=== PATIENT | male | born 1950 | race Caucasian/White ===

== ENCOUNTER 2016-04-24 21:13 | Inpatient (IN) ==
[2016-04-24] MEDS ORDERED: NITROGLYCERIN SL PRN (22:05)
[2016-04-24] MEDS ORDERED: ASPIRIN PO STA (22:05)
--- NOTE | 2016-04-24 22:13 | PROVIDER DOCUMENTATION ---
HPI-Chest Pain - General Chief Complaint: Chest Pain Stated Complaint: cp Time Seen by Provider: 04/24/16 21:38 Source: patient Allergies/Adverse Reactions: Patient Allergies Allergy/AdvReac Type Severity Reaction Status Date / Time No Known Allergies Allergy Verified 04/24/16 21:21 Home Medications: Home Medication List Medication Instructions Recorded Confirmed Last Taken Type Albuterol Sulfate Inhaler 2 puff INH [id number] 04/24/16 04/24/16 Unknown History [Ventolin Hfa] Alprazolam 1 mg PO DIRECTED 04/24/16 04/24/16 Unknown History Baclofen 10 mg PO DIRECTED 04/24/16 04/24/16 Unknown History Citalopram [Celexa] 40 mg PO DAILY 04/24/16 04/24/16 Unknown History Ergocalciferol (Vitamin D2) 50,000 unit PO DIRECTED 04/24/16 04/24/16 Unknown History [Vitamin D2] Hydrocodone/APAP 10 mg/325 mg 1 each PO Q6H PRN PRN 04/24/16 04/24/16 Unknown History [Magee-10] Ipratropium/Albuterol Sulfate 3 ml IH Q6HR 04/24/16 04/24/16 Unknown History [Iprat-Albut 0.5-3(2.5) mg/3 ml] LISINOpril [Prinivil] 2.5 mg PO DAILY 04/24/16 04/24/16 Unknown History Montelukast [Singulair] 10 mg PO DAILY 04/24/16 04/24/16 Unknown History Pantoprazole [Protonix] 40 mg PO DAILY@0700 04/24/16 04/24/16 Unknown History Prednisone 20 mg PO DIRECTED 04/24/16 04/24/16 Unknown History Simvastatin 40 mg PO DAILY 04/24/16 04/24/16 Unknown History Temazepam 30 mg PO QHS PRN 04/24/16 04/24/16 Unknown History Theophylline E.r. [Iker-Dur] 400 mg PO DIRECTED 04/24/16 04/24/16 Unknown History - History of Present Illness-CP Nature of Presenting Problem: 65 YO M presents to ED with Chest Pain. Pt states onset of discomfort that began this afternoon around. States discomfort is located around heart, like someone is sticking him with a needle. States Nauseous with lightheaded, and stating being unbalanced. States numbness and tingling in fingers and also in back. Feeling of fatigue and exhaustion. States 6 years ago they found an aneurysm with 30% blockage. C/o of soreness with deep breath. Location: reports: central Chest Pain Radiation: reports: back Quality of Pain: reports: pressure, sharp Severity in ED: moderate, severe Onset/Duration: this afternoon Timing: still present Context/Activities at Onset: reports: none Associated Symptoms: reports: back pain, dizziness, fatigue. denies: abdominal pain, fever/chills Recently Seen Here or By Another Healthcare Provider: No Review of Systems - Adult - REVIEW OF SYSTEMS - ADULT Constitutional: denies: chills, fever Eyes: reports: no symptoms reported Ears, Nose, Mouth & Throat: reports: no symptoms reported Cardiovascular: reports: chest pain Respiratory: reports: no symptoms reported Gastrointestinal: reports: nausea. denies: abdominal pain, diarrhea, vomiting Genitourinary: reports: no symptoms reported Musculoskeletal: reports: no symptoms reported Integumentary: reports: no symptoms reported Neurological: reports: dizziness/vertigo, numbness, tremors Psychiatric: reports: no symptoms reported Endocrine: reports: no symptoms reported Hematologic/Lymphatic: reports: no symptoms reported Allergic/Immunologic: reports: no symptoms reported All Other Systems: Reviewed and Negative Past History - Adult - PAST MEDICAL HISTORY-ADULT Review of Records: reports: Old Records Reviewed, Nursing Assessment Review, Medications Reviewed, Social history reviewed & non-contributory. Cardiovascular: reports: HTN Respiratory: reports: asthma, COPD Psychiatric: reports: depression Endocrine/Immune: reports: Diabetes - IMMUNIZATION STATUS Childhood Immunizations: See Nurse Assessment Flu Vaccine: See Nurse Assessment - SOCIAL HISTORY Smoking: cigarettes, less than 1 pack/day Living Situation: family Physical Exam-General - PHYSICAL EXAM-ADULT Initial Vital Signs Reviewed: Yes - CONSTITUTIONAL General Appearance: appears well, alert, no apparent distress - EYES Eyes: PERRL/EOMI, pink conjunctivae, fundi clear, no AV nicking - HEAD, EARS, NOSE, MOUTH & THROAT HENMT: normocephalic/atraumatic, moist mucous membranes, normal ENT inspection, TMs normal, pharynx normal - NECK Neck: non-tender, full range of motion, supple, normal inspection - RESPIRATORY Respiratory: chest non-tender, lungs clear, normal breath sounds - CARDIOVASCULAR Cardiovascular: normal peripheral pulses, systolic murmur (2/6 MITRAIL) - GASTROINTESTINAL (ABDOMEN) Abdominal Exam: normal bowel sounds, non tender, soft - MUSCULOSKELETAL Back Exam: normal inspection, no CVA tenderness, no vertebral tenderness Extremity: normal range of motion, non-tender - SKIN Integumentary: normal color, normal turgor, warm/dry - 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 - PSYCHIATRIC Psych/Mental Status: normal mood/affect, normal thought content, normal thought process, oriented x 3 Progress - PLAN OF CARE/RESULTS Progress/Plan/Lab Results: Laboratory Tests 04/24/16 04/24/16 04/24/16 22:18 22:18 22:18 WBC 23.54 H RBC 5.07 Hgb 15.5 Hct 44.8 MCV 88.4 MCH 30.6 MCHC 34.6 RDW Std Deviation 14.8 H Plt Count 224 MPV 10.6 H Immature Gran % (Auto) 1.0 H Neut % (Auto) 84.8 H Lymph % (Auto) 7.2 L Brooke % (Auto) 7.0 Eos % (Auto) 0.0 Baso % (Auto) 0.0 Immature Gran # (Auto) 0.23 H Neut # (Auto) 19.95 H Lymph # (Auto) 1.69 Brooke # (Auto) 1.65 H Eos # (Auto) 0.01 Baso # (Auto) 0.01 PT INR PTT (Actin FS) D-Dimer 0.50 Sodium 133 L Potassium 4.4 Chloride 95 L Carbon Dioxide 19 L Anion Gap 19 BUN 36 H Creatinine 1.8 H Estimated GFR/1.73 m2 38 BUN/Creatinine Ratio 20 Glucose 125 H Calculated Osmolality 276 Calcium 9.5 Magnesium 1.9 Total Bilirubin 0.53 AST 15 ALT 14 Alkaline Phosphatase 47 Creatine Kinase 50 Troponin T Wvg-W-Swtztyhgwcn Pept Total Protein 6.6 Albumin 4.3 Globulin 2.3 Albumin/Globulin Ratio 1.9 04/24/16 04/24/16 04/24/16 22:18 22:18 22:18 WBC RBC Hgb Hct MCV MCH MCHC RDW Std Deviation Plt Count MPV Immature Gran % (Auto) Neut % (Auto) Lymph % (Auto) Brooke % (Auto) Eos % (Auto) Baso % (Auto) Immature Gran # (Auto) Neut # (Auto) Lymph # (Auto) Brooke # (Auto) Eos # (Auto) Baso # (Auto) PT 10.7 INR 1.01 PTT (Actin FS) 20.7 L D-Dimer Sodium Potassium Chloride Carbon Dioxide Anion Gap BUN Creatinine Estimated GFR/1.73 m2 BUN/Creatinine Ratio Glucose Calculated Osmolality Calcium Magnesium Total Bilirubin AST ALT Alkaline Phosphatase Creatine Kinase Troponin T < 0.010 Fii-A-Ppnttddifyd Pept 202 H Total Protein Albumin Globulin Albumin/Globulin Ratio Orders Category Date Time Status Cardiac Monitoring DIRECTED Care 04/24/16 22:06 Active Saline Loc NOW Care 04/24/16 22:06 Active CHEST-PORTABLE [RAD] Stat Exams 04/24/16 22:09 Taken CBC WITH ELECTRONIC DIFF [HEME] Stat Lab 04/24/16 22:18 Completed CK PROFILE [SP CHEM] Stat Lab 04/24/16 22:18 Completed COMPREHENSIVE METABOLIC PANEL [CHEM] Stat Lab 04/24/16 22:18 Completed D-DIMER [CHEM] Stat Lab 04/24/16 22:18 Completed MAGNESIUM [CHEM] Stat Lab 04/24/16 22:18 Completed PRO B-NATRIURETIC PEPTIDE Stat Lab 04/24/16 22:18 Completed PROTIME WITH INR [COAG] Stat Lab 04/24/16 22:18 Completed PTT [COAG] Stat Lab 04/24/16 22:18 Completed THEOPHYLLINE [HH] Stat Lab 04/24/16 22:18 Received TROPONIN T Stat Lab 04/24/16 22:18 Completed Aspirin Med 04/24/16 22:05 Discontinued 325 mg PO STAT STA Morphine Med 04/24/16 23:43 Discontinued 2 mg .ROUTE .STK-MED ONE Morphine Med 04/24/16 23:39 Discontinued 2 mg IV NOW ONE Nitroglycerin Sl [Nitroglycerin] Med 04/24/16 22:05 Active 0.4 mg SL Q5M PRN PRN Ondansetron [Zofran] Med 04/24/16 23:39 Discontinued 4 mg IV NOW ONE EKG [EKG] Stat Ther 04/24/16 21:30 Ordered EKG [EKG] Stat Ther 04/24/16 22:06 Ordered Transfer/Admit Order [TRANSFER] Routine Transfer 04/24/16 23:51 Ordered Vital Signs - 24 hr 04/24/16 04/24/16 04/25/16 21:17 23:10 00:29 Temperature 97.9 F Pulse Rate 88 75 78 Respiratory 17 18 14 Rate Blood Pressure 107/70 134/80 106/79 O2 Sat by Pulse 97 97 97 Oximetry 04/25/16 00:58 Temperature Pulse Rate 61 Respiratory 14 Rate Blood Pressure 115/97 O2 Sat by Pulse 96 Oximetry - EKG 1 Time of EKG reading by physician:: 21:39 EKG Read and Signed by:: Rick Stark Rate: 81 Rhythm: NSR Comments: Normal ECG - CONSULTS/PCP/HOSPITALIST Notification #1 *Consult/PCP/Hospitalist*: Time Discussed: 10:49 Reason/Comments: Admit Consult Disposition: Admit (Admit Accepted) Departure - Departure Time of Disposition Order: 22:58 DIAGNOSIS: Theophylline toxicity, Acute coronary syndrome Disposition: ADMITTED INPATIENT 09 Certified Medical Emergency: Emergent Condition: Stable Additional Instructions: ED Follow Up Instructions: You have been treated by a care provider in the Emergency Department. These instructions are being provided to you so you can have an understanding of how to care for yourself upon discharge. Upon discharge from the Emergency Department, you are responsible for making arrangements for follow-up care by a physician of your choice. Take all prescribed medications as directed. Return to the Emergency Department immediately for any new or worsening symptoms. You may call the Physician Referral phone number at [phone] to obtain a list of Physicians who are taking new patients. Referrals: Phillip Trivedi MD [Primary Care Provider] - Attestation - Scribe Verification/Attestation Scribe:: Juanis Wallace Acting as Scribe for:: Rick Stark Scribe documention review:: This chart was documented by a scribe and accurately reflects the service the provider performed and the decisions made by the provider.
[2016-04-24 22:40] LABS: ALBUMIN 4.3 g/dL (3.5-5.0); CALCIUM 9.5 mg/dL (8.8-10.2); MAGNESIUM 1.9 mg/dL (1.5-2.7); POTASSIUM 4.4 mmol/L (3.5-5.1); TOTAL BILIRUBIN 0.53 mg/dL (0.20-1.00); TOTAL PROTEIN 6.6 g/dL (6.3-8.3)
[2016-04-24 22:43] LABS: INR 1.01; PROTIME 10.7 Seconds (9.2-11.7); PTT 20.7 Seconds (22.0-36.0)
[2016-04-24] MEDS ORDERED: MORPHINE IV ONE (23:39)
[2016-04-24] MEDS ORDERED: ZOFRAN IV ONE (23:39)
[2016-04-24] MEDS ORDERED: MORPHINE ONE (23:43)
[2016-04-25 00:05] LABS: EOS# 0.01 X1000 (0.0-0.7); HEMATOCRIT 44.8 % (42.0-52.0); HEMOGLOBIN 15.5 g/dL (14.0-18.0); IMM GRAN# 0.23 X1000 (0.0-0.04); LYMPH# 1.69 X1000 (1.2-3.4); LYMPH% 7.2 % (20.5-51.1); MANUAL DIFF NEEDED? NO; MCH 30.6 PG (27-31); MCHC 34.6 g/dL (33-37); MCV 88.4 FL (81-99); MONO# 1.65 X1000 (0.11-0.59); MPV 10.6 FL (7.4-10.4); NEUT% 84.8 % (42.2-75.2); PLT 224 X1000 (130-400); RBC 5.07 XMIL (4.7-6.1)
[2016-04-25 01:54] LABS: URINE CULTURE NEEDED? NO; URINE SOURCE CLEAN CATCH
[2016-04-25 01:56] LABS: BILIRUBIN URINE NEGATIVE (NEGATIVE); BLOOD URINE NEGATIVE (NEGATIVE); COLOR YELLOW; GLUCOSE URINE NEGATIVE (NEGATIVE); LEUKOCYTES URINE NEGATIVE (NEGATIVE); NITRITE URINE NEGATIVE (NEGATIVE); PH URINE 5.5; PROTEIN URINE 50 mg/dL (NEGATIVE); TURBIDITY URINE HAZY (CLEAR); UROBILINOGEN URINE 2 mg/dL (NORMAL)
[2016-04-25 01:57] LABS: URINE MICRO REVIEW NEEDED? YES
[2016-04-25 02:03] LABS: UR EPITHELIAL CELLS <10 /HPF (<10); URINE BACTERIA NEGATIVE /HPF; URINE RBC <10 /HPF (<10); URINE WBC <10 /HPF (<10)
[2016-04-25 02:05] LABS: URINE CASTS NONE SEEN; URINE CRYSTALS NONE SEEN; URINE SMALL ROUND CELLS NONE SEEN
[2016-04-25] MEDS ORDERED: ZOFRAN IV PRN (02:41)
[2016-04-25] MEDS ORDERED: TYLENOL PO PRN (02:41)
[2016-04-25] MEDS ORDERED: MORPHINE IV PRN (02:41)
[2016-04-25] MEDS ORDERED: XANAX PO PRN (03:02)
[2016-04-25] MEDS ORDERED: VENTOLIN HFA INH SCH (03:02)
[2016-04-25] MEDS ORDERED: RESTORIL PO PRN (03:02)
[2016-04-25] MEDS ORDERED: LEVAQUIN 750 MG in NS 150 ML IV SCH (04:00)
[2016-04-25] MEDS: NS 1,000 ML IV SCH (04:24)
[2016-04-25] MEDS: NORCO-10 PO PRN ×3 (04:24→22:01)
[2016-04-25] MEDS ORDERED: LEVAQUIN 750 MG/D5W 150 ML IV SCH (04:30)
--- NOTE | 2016-04-25 05:45 | EKG Report ---
Test Performed on : 04/24/2016 9:39:32 PM Test Reason : chest pain Blood Pressure : / mmHG Vent. Rate : 081 BPM Atrial Rate : 081 BPM P-R Int : 164 ms QRS Dur : 082 ms QT Int : 358 ms P-R-T Axes : 050 010 033 degrees QTc Int : 415 ms Normal sinus rhythm. Normal ECG No previous ECGs available Unconfirmed Result
[2016-04-25] MEDS ORDERED: DUONEB (A & A) INH PRN (06:05)
[2016-04-25 06:27] LABS: MANUAL DIFF NEEDED? NO
[2016-04-25] MEDS ORDERED: PRILOSEC PO SCH (07:00)
[2016-04-25 07:01] LABS: BASO% 0.2 % (0.0-0.8); EOS# 0.11 X1000 (0.0-0.7); EOS% 0.8 % (0.0-10.0); HEMATOCRIT 43.4 % (42.0-52.0); HEMOGLOBIN 14.5 g/dL (14.0-18.0); IMM GRAN# 0.18 X1000 (0.0-0.04); IMM GRAN% 1.3 % (0.0-0.5); LYMPH# 3.09 X1000 (1.2-3.4); MCH 29.8 PG (27-31); MCHC 33.4 g/dL (33-37); MCV 89.3 FL (81-99); MONO# 1.18 X1000 (0.11-0.59); MONO% 8.4 % (1.7-9.3); MPV 10.9 FL (7.4-10.4); NEUT% 67.3 % (42.2-75.2); PLT 196 X1000 (130-400); RBC 4.86 XMIL (4.7-6.1)
[2016-04-25 07:08] LABS: ALBUMIN 4.3 g/dL (3.5-5.0); CALCIUM 9.3 mg/dL (8.8-10.2); POTASSIUM 3.9 mmol/L (3.5-5.1)
--- NOTE | 2016-04-25 07:35 | EKG Report ---
Test Performed on : 04/25/2016 06:36:39 AM Test Reason : Chest Pain Blood Pressure : / mmHG Vent. Rate : 060 BPM Atrial Rate : 060 BPM P-R Int : 168 ms QRS Dur : 084 ms QT Int : 410 ms P-R-T Axes : 059 028 032 degrees QTc Int : 410 ms Normal sinus rhythm. Normal ECG When compared with ECG of 24-APR-2016 21:39, (Unconfirmed) No significant change was found Confirmed by Malvin La MD ([id number]) on 04/25/2016 9:02:15 PM
--- NOTE | 2016-04-25 07:54 | Diag Imaging Result Document ---
PROCEDURE NAME: THORAX/ABDOMEN/PELVIS W/O CONT - 04/25/2016 CT OF THE CHEST WITHOUT CONTRAST: FINDINGS: There is COPD. There is herniation of the lower portion of the right upper lobe through the 5th intercostal space laterally. This may be due to previous trauma or surgery. There is fibrosis or atelectasis in the adjacent lung parenchyma. There are also apparent fibrotic changes in the lower portion of the lingula and the anterior inferior right lower lobe. No previous studies are available for comparison. There is no evidence of significant adenopathy or abnormal fluid collections. There is some coronary calcification. The regional skeleton is, otherwise, intact. IMPRESSION: No evidence of acute disease. CT UROGRAM WITHOUT CONTRAST: There are multiple appearances of left renal cysts. There is no evidence of hydronephrosis or stones. There are no apparent gallstones. There is atherosclerotic calcification in the aorta with infrarenal abdominal aortic aneurysm with a maximum AP dimension of 3.8 cm. There is no evidence of bowel obstruction. No significant adenopathy is present. There is no evidence of appendicitis. There is no evidence of free fluid. The urinary bladder is not distended. IMPRESSION: No evidence of acute intraabdominal disease. Abdominal aortic aneurysm.
--- NOTE | 2016-04-25 08:00 | HISTORY AND PHYSICAL ---
PRIMARY CARE PROVIDER: Phillip Trivedi MD CHIEF COMPLAINT: Chest pain. HISTORY OF PRESENT ILLNESS: Mr. Siegel is a 65-year-old male who presented to [facility] with complaints of chest pain that has been consistent for approximately 1.5 weeks. The patient reports that previously the pain in his left chest was not radiating. He described it as sharp and stabbing in nature. He reports that with even the lightest of exertion that the chest pain would worsen. The patient reports that earlier in the day on 04/24/2016 that his chest pain became worse and more intense and switched to feeling like pressure in nature. He described associated symptoms of shortness of breath, diaphoresis, nausea, and fatigue. The patient also reported that today with the worsening of his chest pain that he felt lightheaded and had some blurred vision as well. The patient reports that he has just recently moved here from [place], approximately 8 months ago. He reports that he currently still smokes one pack of cigarettes per day though he did express that he wanted to quit smoking. He denies any alcohol or illicit drug use. He does have a history of COPD, diabetes that is diet controlled, hypertension, hyperlipidemia, abdominal aortic aneurysm, and pulmonary embolism several years ago for which he did initially receive Coumadin therapy for. The patient did report that previously he did have one episode in the past of having acute renal failure though has not had any problems with kidney disease or complications since. Upon evaluation in the E.R. the patient was evaluated and he was found to have acute kidney injury with an elevated creatinine of 1.8 and GFR of 38. Troponin and CK were negative. EKG at this time did not show any acute changes. It was normal sinus rhythm at a rate of 81. QTc was 415. Though the patient did have a elevated white blood cell count of 23.54. The patient denies any recent changes in his medications. He does take prednisone though has taken this for a few years. He denies any fever though did report some intermittent chills for the past 6 months as well as some generalized lower abdominal pain with diarrhea as well for the past 6 months. He denied any cough, dysuria, or urinary frequency. At this time we will admit the patient for further evaluation of his chest pain as well as his leukocytosis and acute kidney injury. REVIEW OF SYSTEMS: A 14 point review of systems was conducted with the patient and all were negative except for pertinent positives mentioned above in the HPI. PAST MEDICAL HISTORY: 1. COPD. 2. Diabetes mellitus type 2 which is diet controlled. 3. Gastroesophageal reflux disease. 4. Hypertension. 5. Seizures. 6. Vertigo. 7. Abdominal aortic aneurysm. 8. History of acute renal failure. 9. Depression. 10.Anxiety. 11.Cataracts. 12.Pulmonary embolism. 13.Chronic pain secondary to neck and back problems. PAST SURGICAL HISTORY: 1. Bilateral cataract removal. 2. Neck surgery. 3. Low back surgery. 4. Right hand surgery. 5. Right knee surgery. 6. Surgery on his right lung for initially a biopsy and then removal of a fungal infection per the patient. SOCIAL HISTORY: The patient is currently a one pack per day smoker and has been since the age of 23. He denies any alcohol or illicit drug use. FAMILY HISTORY: Positive for his mother having at a young age in her 30s from a lung disease though the patient could not state what kind. His father had a past medical history significant for cardiac disease. He had his first heart attack at the age of 28 and had 3 subsequent heart attacks as well. He had pacemaker placement and from a thoracic aneurysm rupture. He reports that his siblings are all healthy. ALLERGIES: The patient reports no known allergies. HOME MEDICATIONS: 1. Ventolin HFA inhaler, two puffs inhaled 4 times a day. 2. Xanax 1 mg p.o. every 8 hours p.r.n. for anxiety/seizures. 3. Baclofen 10 mg p.o. as directed. 4. Celexa 40 mg p.o. daily. 5. Vitamin D2 50,000 units p.o. as directed once weekly. 6. [place] 10, one p.o. every 6 hours p.r.n. for pain. 7. Albuterol Atrovent nebulizer treatments, inhaled every 6 hours p.r.n. for wheezing. 8. Lisinopril 2.5 mg p.o. daily. 9. Singulair 10 mg p.o. daily. 10.Protonix 40 mg p.o. daily. 11.Prednisone 20 mg p.o. as directed once daily. 12.Simvastatin 40 mg p.o. daily. 13.Temazepam 30 mg p.o. at bedtime p.r.n. for insomnia. 14.Theophylline extended release 400 mg b.i.d. p.o.. DIAGNOSTIC DATA: White blood cell count is 23.54, hemoglobin 15.5, hematocrit 44.8, and platelet count 224. PT is 10.79, INR 1.01, and PTT 20.7. D-dimer is 0.5. Sodium is 133, potassium 4.4, chloride 95, bicarb 19, BUN 36, creatinine 1.8, GFR 38, glucose 125, hemoglobin A1c 6, calcium 9.5, and magnesium 1.9. Liver function tests were within normal limits. CK is 50. Troponin is less than 0.01. ProBNP is 2.02. Plasma lactate was 1.1. Urinalysis obtained via clean catch was positive for protein and trace ketones and was negative for blood, nitrites, leukocytes, white blood cells, and bacteria. EKG showed normal sinus rhythm at a rate of 81. QTc was 415. CT thorax, abdomen, and pelvis without contrast showed emphysema. There were ill-defined opacities in the right mid lung which likely represent scarring. Consider comparison to previous for confirmation. No diverticulitis or bowel obstruction. Normal appendix. A 3.8 cm abdominal aortic aneurysm. PHYSICAL EXAMINATION: VITAL SIGNS: Temperature is 97.9, heart rate 78, respirations 14, and blood pressure 106/79. Oxygen saturation is 97% on room air. GENERAL: Mr. Siegel is a pleasant 65-year-old male who is resting in the E.R. stretcher in no acute distress. He was awake, alert, and able to answer all questions appropriately. HEENT: The head is atraumatic, normocephalic. Pupils are equal, round, and reactive to light. They were 3 mm bilaterally and brisk. Sub-conjunctivae were pink. Oral mucosa is moist. Oropharynx is clear. NECK: Supple. Trachea is midline. No JVD noted. No carotid bruits noted upon auscultation bilaterally. CARDIOVASCULAR: The patient has normal S1, S2. No murmurs, gallops, or rubs appreciated with a regular rate and rhythm. PULMONARY: The patient has symmetrical chest expansion bilaterally. Lungs sounds in bilateral full lung marmolejo did have inspiratory and expiratory wheezing noted. ABDOMEN: Soft, nontender, and nondistended. Bowel sounds were present in all four quadrants and were normoactive. EXTREMITIES: No cyanosis or edema noted. Pulse, motor, and sensory was intact in all extremities. Pedal pulses were 3+ bilaterally. Radial pulses were 3+ bilaterally as well. INTEGUMENTARY: The patient's skin is pink, warm, dry, and intact. No lesions or sores noted. NEUROLOGICAL: The patient is alert and oriented times 3. Cranial nerves 2 through 12 are grossly intact. IMPRESSION AND PLAN: 1. Chest pain, rule out acute coronary syndrome for this. We will do a series of cardiac enzymes. We have placed a consult with Dr. Bettencourt with Cardiology. We will repeat an EKG in the morning. We have also ordered an echocardiogram for in the morning. The patient did report that his last cardiac catheterization was several years ago. He did report that he had received these tests in [place] where he previously lived. At this time the patient's chest pain has improved greatly with the use of morphine in the E.R. and nitroglycerin prior his arrival to the E.R.. We will do cardiac telemetry and vital signs every 4 hours and closely monitor his cardiac status. 2. Leukocytosis. At this time this is of uncertain etiology. The patient does take 20 mg of prednisone daily though has done this for at least 3-4 years per his report. The patient denies any changes in medicines or new medicines. Other than reports of diarrhea and some lower abdominal pain no other signs of infection were noted. CT thorax, abdomen, and pelvis was negative for any signs of infection as well though there was some ill-defined opacities in the right lung which were likely reported as scarring but we will go ahead and cover him with Levaquin IV per renal dosing until we can further evaluate this and await blood cultures. We also will place orders for stool cultures and we will await those results as well. 3. Diarrhea. We will continue with treatment as mentioned for #2 and we will order stool studies and we will continue to follow. 4. Acute kidney injury. This could be multifactorial secondary to the patient's diarrhea as well as a combination of medications. We will avoid nephrotoxic medications and we will renally dose the patient's current home medications and we will continue to follow. We will also provide gentle fluid resuscitation with normal saline at 100 mL/hr and we will repeat a renal profile in the morning. 5. Hypertension. At this time we will hold the patient's lisinopril given his current acute kidney injury. His blood pressure at this time is within normal limits with the last reading of 106/79. We will closely monitor his blood pressure and continue to follow. 6. Hyperlipidemia. We have ordered for the patient to receive a lipid profile tomorrow morning so that he can be fasting for this lab draw. At this time we will hold his simvastatin due to his acute kidney injury and we will continue to follow. 7. Diabetes mellitus type 2. At this time the patient currently reports that this diet controlled. His hemoglobin A1c was 6. We will do fingerstick blood sugars morning and night and place him on a diabetic diet and continue to follow. 8. Chronic obstructive pulmonary disease. For this, the patient does take theophylline 400 mg twice a day. We have ordered a theophylline level and until we get this back we will hold this at this time. We have also ordered for the patient to have DuoNeb, Albuterol Atrovent treatments every 4-6 hours p.r.n. as needed. 9. Tobacco abuse dependency. I did discuss with the patient the need for him to quit smoking given his cardiac history, respiratory history, and history of pulmonary embolism. The patient does express the want to quit smoking. We will continue to employee counselor the patient on this and encourage him to quit smoking and we will provide him with further education and materials on this upon discharge. The patient was placed on the medical floor on telemetry. He will have vital signs every 4 hours. DVT prophylaxis will be provided with heparin 5,000 units subcutaneously every 12 hours. GI prophylaxis will be provided with Protonix 40 mg p.o. daily. Further orders and recommendations pending hospital course, diagnostic studies, and physician evaluation. Dictated by KIRILL Garay for Flip Medina MD
--- NOTE | 2016-04-25 08:16 | Diag Imaging Result Document ---
PROCEDURE NAME: CHEST-PORTABLE - 04/24/2016 SINGLE FRONTAL RADIOGRAPH OF THE CHEST: COMPARISON: 02/17/2016. FINDINGS: There are postsurgical changes at the right lung base and mid lung zone that are similar to the previous study. No definite new consolidation is identified. No significant pleural fluid collection is identified. Cardiac silhouette and central vasculature are grossly unremarkable. IMPRESSION: Postsurgical changes at the right mid and lower lung zone that are very similar to the previous study. No definite acute pathology, otherwise.
[2016-04-25] MEDS: DUONEB (A & A) INH SCH ×3 (10:00→23:04)
[2016-04-25] MEDS: HEPARIN SUBQ SCH ×2 (11:31→21:55)
[2016-04-25] MEDS: LIORESAL PO SCH ×2 (11:32→21:55)
[2016-04-25] MEDS: CELEXA PO SCH (11:32)
[2016-04-25] MEDS: PROTONIX PO SCH (11:32)
--- NOTE | 2016-04-25 12:05 | CONSULTATION ---
DATE OF CONSULTATION: 04/25/2016 HISTORY OF PRESENT ILLNESS: The patient is a 65-year-old gentleman, who is admitted with chest pain and cough with expectoration. He has history of COPD, has nebulizers and oxygen as at home. He is a smoker. He comes with complaints of having cough with expectoration, which is mucoid to mucopurulent for the last 3-4 days. However, he has been noticing increasing shortness of breath and some chest discomfort left- sided for 1-2 weeks. These symptoms were more pleuritic in nature. He underwent a CT scan of his chest. There is no evidence of acute disease in the abdomen as well. No evidence of intra- abdominal disease or abdominal aorta aneurysm was ruled out. He was noted to have elevated white count. Started on antibiotics. From a cardiac standpoint, he has relocated from [place]. He had an angiogram done about 4 or 5 years ago and was noted to have some minimal coronary artery disease without any significant disease per patient. I do not have official records. There are no palpitations. There is no dizziness or syncope. FOURTEEN POINT REVIEW OF SYSTEMS: GI system: There is no history of nausea, vomiting, or diarrhea. There is no history of hematemesis or melena. Central nervous system: No focal weakness to suggest a CVA or TIA. system: There is no dysuria or hematuria. PAST MEDICAL HISTORY: COPD, diabetes, gastroesophageal reflux disease, hypertension, vertigo, depression, cataract surgery, history of pulmonary embolism in the past. PAST SURGICAL HISTORY: Neck surgery, bilateral cataract surgery, low back surgery, right hand surgery, right knee surgery. HOME MEDICATIONS: Ventolin, Xanax, baclofen 10 mg, Celexa 40, lisinopril 2.5, Singulair 10, Protonix 40, prednisone 20, theophylline extended release. LABS: WBC 23.54, hemoglobin 15.5, hematocrit 44, platelet count of 224. Sodium 133, potassium 4.4, BUN 36, creatinine 1.8. X-RAYS: CT scan of thorax, abdomen and pelvis without contrast revealed emphysema. There were ill-defined opacities in the right mid lung with scarring. ASSESSMENT AND PLAN: 1. Mr. Pedro Siegel is a 65-year-old gentleman with history of chronic obstructive pulmonary disease, who comes with complaints of having cough with mucoid to mucopurulent expectoration and chest discomfort. Electrocardiogram revealed normal sinus rhythm. There were no ST-T changes to suggest ischemia. 2. His white count was elevated. That could be secondary to his steroids, but he has had blood cultures taken and has been started on antibiotics. 3. We will get an echocardiogram to assess cardiac and valvular function. 4. He has been started on levofloxacin for his chronic obstructive pulmonary disease exacerbation. Given his mucoid to mucopurulent expectoration, would recommend continuing it. 5. He is on Celexa for depression. I have not made any changes. 6. He is on inhalers. I have not made any changes. 7. Protonix for gastroesophageal reflux disease. I have not made any changes. 8. His symptoms of chest pain are atypical, more suggestive of respiratory tract infection and pleuritic type. His D-dimer was 0.5. 9. Blood cultures and Clostridium difficile stool has been ordered and reports are pending. Thank you for the consult. We will follow hospital course.
--- NOTE | 2016-04-25 16:02 | ECHO REPORT ---
ORDER DATE: 04/25/2016 INTERPRETING PHYSICIAN: Dr. Biggs CLINICAL INDICATIONS: Y[age]ajn[age]cg[age]r-old male, acute coronary syndrome, chest pain. M-MODE MEASUREMENTS: Right ventricle: 2.8 cm. Left ventricle end diastole: 4.3 cm. Left ventricle end systole: 2.7 cm. Posterior wall: 0.9 cm. Interventricular septum: 1.0 cm. Left atrium: 4.0 cm. Aortic root: 3.8 cm. SUMMARY OF 2-DIMENSIONAL IMAGING: Left ventricular function is normal, ejection fraction of 71%. The chamber is mildly enlarged. The right ventricle appears to be normal. The atria appear to be normal. Mitral valve looks normal. Color flow mapping indicates mild to moderate degree of regurgitation. Pulse wave Doppler of mitral inflow shows normal E/A ratio. Tissue Doppler of septal and lateral mitral annulus is normal averaging 10 cm. The pulse wave Doppler of pulmonary venous flow is normal. There is no diastolic dysfunction. Aortic valve looks normal. Color flow mapping indicates mild degree of regurgitation. There is no stenosis. The tricuspid valve shows mild degree of regurgitation. Inferior vena cava is not dilated. Pulmonary pressure estimated at 29 mmHg. Pulmonic valve looks normal. Color flow mapping unremarkable. There is no pericardial effusion, masses, nor thrombus. Clinical correlation is recommended.
[2016-04-25] MEDS ORDERED: ASPIRIN PO SCH (21:00)
[2016-04-25] MEDS: ADVAIR 250/50 DISKUS INH SCH (23:04)
[2016-04-26] MEDS: NS 1,000 ML IV SCH (03:12)
[2016-04-26] MEDS: DUONEB (A & A) INH SCH ×3 (03:17→09:31)
[2016-04-26] MEDS: PROTONIX PO SCH (06:24)
[2016-04-26 07:56] VITALS: BP 100/48
[2016-04-26] MEDS: ADVAIR 250/50 DISKUS INH SCH (09:32)
[2016-04-26] MEDS: NORCO-10 PO PRN (10:04)
[2016-04-26] MEDS: LIORESAL PO SCH (10:04)
[2016-04-26] MEDS: HEPARIN SUBQ SCH (10:04)
[2016-04-26] MEDS: CELEXA PO SCH (10:05)
--- NOTE | 2016-04-27 04:06 | DISCHARGE SUMMARY ---
ADMISSION DATE: 04/25/2016 DISCHARGE DATE: 04/26/2016 INVASIVE PROCEDURES DONE DURING THIS ADMISSION: None. IMAGING STUDIES OF SIGNIFICANCE: 1. A CT scan of the chest, abdomen, and pelvis was done which shows no evidence of acute disease. 2. An echocardiogram was done which showed ejection fraction of 71, normal E/A ratio, no abnormalities on the valves. DISPOSITION: Home. FOLLOWUP: 1. Dr. Trivedi. 2. Dr. Ozuna. 3. Dr. Bettencourt. Specifically, smoking cessation was addressed. ADMISSION DIAGNOSES: 1. Atypical chest pain. 2. Leukocytosis. 3. Diarrhea. 4. Acute kidney injury. DISCHARGE DIAGNOSES: 1. Atypical chest pain. Cardiology evaluated the patient. Myocardial infarction was ruled out. 2. Chronic obstructive pulmonary disease in mild exacerbation. 3. Neck pain with left hand numbness, likely secondary to cervical spondylosis with radiculopathy. 4. Tobacco abuse. 5. Chronic pain syndrome. 6. Mild acute kidney injury. DISCHARGE MEDICATIONS: 1. Alprazolam 1 mg p.o. daily. 2. Baclofen 10 mg. 3. Citalopram 40 mg daily. 4. Vitamin D. 5. [place]. 6. Prednisone 20 mg daily. 7. Simvastatin 40 mg daily. 8. Theophylline. 9. Pantoprazole 40 mg daily. 10. Levofloxacin 250 mg daily. MEDICATION THAT HAS BEEN DISCONTINUED: 1. Lisinopril 2.5. 2. Temazepam 30 mg at bedtime. PRESENTING COMPLAINT: Chest pain, shortness of breath. HISTORY OF PRESENTING COMPLAINT: Mr. Siegel is a 65-year-old, male who reportedly relocated from [place] a couple years ago. Has been following Dr. Trivedi for his outpatient care. The patient is a very avid tobacco smoker. Presented to the emergency department because of some generalized nonspecific symptoms of chest pain, some shortness of breath, and cough. Was admitted to rule out acute coronary syndrome. HOSPITAL COURSE: The patient was evaluated by cardiology, Dr. Bettencourt, who thought that symptoms of the chest pain was atypical and it was more suggestive of a respiratory tract infection. Patient's troponins where followed. They were all unremarkable. EKG was also unremarkable. 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 I think patient, what he has is cervical spondylosis with radiculopathy. We also stressed about the importance of tobacco cessation. Patient was really not very interested in that. He was more interested in discussing all the pain medications and the sedatives that he was getting, which I did tell him to address that with his primary care doctor. The patient was completely clinically stable. The lungs sounded a lot better and I thought he was ready to be discharged. However, I think during later in the day, he wanted to talk to the software engineer sales before he would go home and he said he knew his right and he thought something was remarkably wrong with his heart. In any case, cardiology agreed to see him but patient left AMA. At the time of today's encounter, patient's vitals are remarkably stable and he is going to be discharged home in a very stable condition. MTDD
[2016-04-27] MEDS ORDERED: LEVAQUIN PO SCH (09:00)
[2016-04-27] MEDS ORDERED: VITAMIN D PO SCH (09:00)
--- NOTE | 2016-04-28 06:02 | EKG Report ---
Test Performed on : 04/26/2016 05:44:12 AM Test Reason : cp Blood Pressure : / mmHG Vent. Rate : 055 BPM Atrial Rate : 055 BPM P-R Int : 164 ms QRS Dur : 084 ms QT Int : 450 ms P-R-T Axes : 060 040 029 degrees QTc Int : 430 ms Sinus bradycardia. Otherwise normal ECG When compared with ECG of 25-APR-2016 06:36, No significant change was found Unconfirmed Result
== END 2016-04-26 16:00 | disposition left against medical advice (07) | DRG 313 ==
LOC: EDUNIT# → EDBD → ED 21:13 → 3N 04-25 03:18
PROVIDERS: ATTEND Internal Medicine
DX: R07.89 Other chest pain (principal); N17.9 Acute kidney failure, unspecified; J44.1 Chronic obstructive pulmonary disease with (acute) exacerbation; I10 Essential (primary) hypertension; E11.9 Type 2 diabetes mellitus without complications; E78.5 Hyperlipidemia, unspecified; I71.4 Abdominal aortic aneurysm, without rupture; K21.9 Gastro-esophageal reflux disease without esophagitis; M47.22 Other spondylosis with radiculopathy, cervical region; G89.4 Chronic pain syndrome; F41.9 Anxiety disorder, unspecified; F32.9 Major depressive disorder, single episode, unspecified; F17.210 Nicotine dependence, cigarettes, uncomplicated; Z79.899 Other long term (current) drug therapy; Z79.52 Long term (current) use of systemic steroids; Z86.711 Personal history of pulmonary embolism; Z82.49 Family history of ischemic heart disease and other diseases of the circulatory system; Z91.19 Patient's noncompliance with other medical treatment and regimen
CPT/HCPCS: 71010; 71250; 74176; 80053; 80061; 80069; 80198; 81001; 82550; 82948; 83036; 83605; 83721; 83735; 83880; 84484; 85025; 85379; 85610; 85730; 87040; 93005; 93010; 93306; 94640; 94761; J1644; J2270; J2405; J7030

== ENCOUNTER 2016-05-18 19:52 | Emergency (ER) ==
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
--- NOTE | 2016-05-18 20:22 | EKG Report ---
Test Performed on : 05/18/2016 8:01:21 PM Test Reason : psych eval Blood Pressure : / mmHG Vent. Rate : 111 BPM Atrial Rate : 111 BPM P-R Int : 148 ms QRS Dur : 066 ms QT Int : 338 ms P-R-T Axes : 068 028 063 degrees QTc Int : 459 ms Sinus tachycardia. Otherwise normal ECG When compared with ECG of 26-APR-2016 05:44, Vent. rate has increased BY [address] now depressed in Anterior leads Nonspecific T wave abnormality no longer evident in Inferior leads Nonspecific T wave abnormality now evident in Lateral leads Unconfirmed Result
[2016-05-18 20:39] LABS: MANUAL DIFF NEEDED? NO
[2016-05-18 20:44] LABS: BASO% 0.1 % (0.0-0.8); EOS# 0.03 X1000 (0.0-0.7); EOS% 0.2 % (0.0-10.0); HEMATOCRIT 45.8 % (42.0-52.0); HEMOGLOBIN 15.6 g/dL (14.0-18.0); IMM GRAN# 0.29 X1000 (0.0-0.04); IMM GRAN% 1.9 % (0.0-0.5); LYMPH# 2.55 X1000 (1.2-3.4); LYMPH% 17.1 % (20.5-51.1); MCHC 34.1 g/dL (33-37); MCV 88.1 FL (81-99); MONO# 0.92 X1000 (0.11-0.59); MONO% 6.2 % (1.7-9.3); MPV 9.6 FL (7.4-10.4); NEUT% 74.5 % (42.2-75.2); PLT 320 X1000 (130-400)
[2016-05-18] MEDS ORDERED: SODIUM CHLORIDE 0.9% INJ ONE (21:04)
[2016-05-18] MEDS ORDERED: PHENERGAN IV ONE (21:04)
[2016-05-18] MEDS ORDERED: LR 1,000 ML IV PRN (21:04)
[2016-05-18] MEDS ORDERED: MORPHINE IV ONE (21:04)
[2016-05-18 21:08] LABS: AGAP 16; ALBUMIN 4.7 g/dL (3.5-5.0); ALKALINE PHOSPHATASE 49 U/L (32-122); BUN 28 mg/dL (8-22); CALCIUM 9.9 mg/dL (8.8-10.2); CHLORIDE 98 mmol/L (98-107); COSMO 281; GOT 17 U/L (10-34); GPT 27 U/L (10-44); POTASSIUM 4.6 mmol/L (3.5-5.1); SODIUM 137 mmol/L (136-145); TCO2 23 mmol/L (25-35); TOTAL PROTEIN 6.7 g/dL (6.3-8.3)
[2016-05-18 21:17] LABS: URINE CULTURE PL NEEDED? NO; URINE SOURCE CATH
[2016-05-18 21:18] LABS: FREE T4 1.35 ng/dL (0.93-1.70)
[2016-05-18 21:44] LABS: UR AMPHETAMINES QUAL NONE DETECTED (NONE DETECT); UR BARBITUATES QUAL NONE DETECTED (NONE DETECT); UR BENZODIAZEPIN QUAL PRESUMPTIVE POSITIVE (NONE DETECT); UR CANNABINOIDS QUAL NONE DETECTED (NONE DETECT); UR COCAINE QUAL NONE DETECTED (NONE DETECT); UR MDMA QUAL NONE DETECTED (NONE DETECT); UR METHADONE QUAL NONE DETECTED (NONE DETECT); UR METHAMPHETAMINE QUAL NONE DETECTED (NONE DETECT); UR OPIATES QUAL NONE DETECTED (NONE DETECT); UR OXYCODONE QUAL NONE DETECTED (NONE DETECT); UR PCP QUAL NONE DETECTED (NONE DETECT); UR TCA QUAL NONE DETECTED (NONE DETECT)
[2016-05-18 21:55] LABS: BILIRUBIN URINE NEGATIVE (NEGATIVE); BLOOD URINE 1+ (NEGATIVE); CLARITY CLEAR (CLEAR); COLOR YELLOW; GLUCOSE URINE NEGATIVE (NEGATIVE); LEUKOCYTES URINE NEGATIVE (NEGATIVE); NITRITE URINE NEGATIVE (NEGATIVE); PROTEIN URINE NEGATIVE (NEGATIVE); SP GRAVITY URINE 1.015; UROBILINOGEN URINE NORMAL
[2016-05-18 22:02] LABS: URINE CAST GRANULAR PRESENT /LPF; URINE CRYSTAL NONE SEEN /HPF; URINE EPITHELIAL CELLS <10 /HPF (<10); URINE RBC <10 /HPF (<10)
[2016-05-19 04:36] VITALS: BP 112/069
--- NOTE | 2016-05-19 07:56 | Diag Imaging Result Document ---
PROCEDURE NAME: CHEST-2 VIEWS - 05/18/2016 FRONTAL AND LATERAL CHEST, TWO VIEWS: COMPARISON: Compared to 04/24/2016. FINDINGS: The lungs are hyperexpanded. Mild increased AP diameter to the chest. The pulmonary vessels are small. No effusions. There are old bilateral rib fracture. Mild scoliosis. Mild compression to a mid thoracic vertebra. Mild scoliosis. IMPRESSION: 1. Emphysema. 2. Multiple old fractures.
--- NOTE | 2016-05-19 09:27 | Diag Imaging Result Document ---
PROCEDURE NAME: ABDOMEN FLAT/UPRIGHT - 05/18/2016 FLAT AND UPRIGHT ABDOMEN: FINDINGS: There is a large amount of stool in the rectum. There is no evidence of small bowel or gastric distention. No evidence of organomegaly or mass is present. There are no acute bony abnormalities. IMPRESSION: Constipation.
== END 2016-05-19 04:34 ==
LOC: P.ED 19:52
DX: F32.9 Major depressive disorder, single episode, unspecified (principal); R45.851 Suicidal ideations; R94.31 Abnormal electrocardiogram [ECG] [EKG]; R10.819 Abdominal tenderness, unspecified site; I10 Essential (primary) hypertension; J45.909 Unspecified asthma, uncomplicated; J44.9 Chronic obstructive pulmonary disease, unspecified; E11.9 Type 2 diabetes mellitus without complications; F17.210 Nicotine dependence, cigarettes, uncomplicated; Z79.899 Other long term (current) drug therapy; Z71.6 Tobacco abuse counseling
CPT/HCPCS: 71020; 74020; 80053; 80198; 80305; 81001; 82607; 83690; 84439; 84443; 85025; 93005; G0480; J2270; J2550; J7120; 80320

== ENCOUNTER 2016-07-08 07:18 | Inpatient (IN) ==
[2016-07-08] MEDS ORDERED: ZOFRAN IV ONE (07:38)
[2016-07-08] MEDS ORDERED: NS 1,000 ML IV ONE (07:38)
[2016-07-08 07:40] LABS: MANUAL DIFF NEEDED? NO
--- NOTE | 2016-07-08 07:46 | EKG Report ---
Test Performed on : 07/08/2016 07:25:02 AM Test Reason : CP Blood Pressure : / mmHG Vent. Rate : 079 BPM Atrial Rate : 079 BPM P-R Int : 142 ms QRS Dur : 080 ms QT Int : 380 ms P-R-T Axes : 063 019 040 degrees QTc Int : 435 ms Normal sinus rhythm. with sinus arrhythmia. Normal ECG When compared with ECG of 07-JUL-2016 03:24, Non-specific change in ST segment in Anterior leads Unconfirmed Result
[2016-07-08 07:53] LABS: BASO% 0.2 % (0.0-0.8); EOS# 0.01 X1000 (0.0-0.7); EOS% 0.1 % (0.0-10.0); HEMATOCRIT 42.1 % (42.0-52.0); IMM GRAN# 0.89 X1000 (0.0-0.04); IMM GRAN% 6.7 % (0.0-0.5); LYMPH# 1.74 X1000 (1.2-3.4); LYMPH% 13.1 % (20.5-51.1); MCH 30.5 PG (27-31); MCHC 33.3 g/dL (33-37); MCV 91.7 FL (81-99); MONO# 0.89 X1000 (0.11-0.59); MONO% 6.7 % (1.7-9.3); MPV 9.6 FL (7.4-10.4); NEUT% 73.2 % (42.2-75.2); PLT 262 X1000 (130-400); RBC 4.59 XMIL (4.7-6.1)
[2016-07-08 08:04] LABS: URINE CULTURE PL NEEDED? NO
[2016-07-08 08:12] LABS: AGAP 14; ALBUMIN 4.7 g/dL (3.5-5.0); ALKALINE PHOSPHATASE 55 U/L (32-122); AMYLASE 50 U/L (20-200); BUN 26 mg/dL (8-22); CALCIUM 9.2 mg/dL (8.8-10.2); CHLORIDE 99 mmol/L (98-107); COSMO 284; GOT 17 U/L (10-34); GPT 26 U/L (10-44); LIPASE 48 U/L (13-60); POTASSIUM 3.8 mmol/L (3.5-5.1); SODIUM 139 mmol/L (136-145); TCO2 26 mmol/L (25-35); TOTAL PROTEIN 6.9 g/dL (6.3-8.3)
[2016-07-08 08:14] LABS: UR AMPHETAMINES QUAL NONE DETECTED (NONE DETECT); UR BARBITUATES QUAL NONE DETECTED (NONE DETECT); UR BENZODIAZEPIN QUAL NONE DETECTED (NONE DETECT); UR CANNABINOIDS QUAL NONE DETECTED (NONE DETECT); UR COCAINE QUAL NONE DETECTED (NONE DETECT); UR MDMA QUAL NONE DETECTED (NONE DETECT); UR METHADONE QUAL NONE DETECTED (NONE DETECT); UR METHAMPHETAMINE QUAL NONE DETECTED (NONE DETECT); UR OPIATES QUAL NONE DETECTED (NONE DETECT); UR OXYCODONE QUAL NONE DETECTED (NONE DETECT); UR PCP QUAL NONE DETECTED (NONE DETECT); UR TCA QUAL NONE DETECTED (NONE DETECT)
[2016-07-08 08:17] LABS: BILIRUBIN URINE NEGATIVE (NEGATIVE); BLOOD URINE 1+ (NEGATIVE); CLARITY CLEAR (CLEAR); COLOR YELLOW; LEUKOCYTES URINE NEGATIVE (NEGATIVE); NITRITE URINE NEGATIVE (NEGATIVE); PROTEIN URINE TRACE mg/dL (NEGATIVE); SP GRAVITY URINE 1.025; UROBILINOGEN URINE NORMAL
[2016-07-08 08:19] LABS: URINE WBC <10 /HPF (<10)
[2016-07-08 08:20] LABS: URINE EPITHELIAL CELLS <10 /HPF (<10); URINE RBC <10 /HPF (<10); URINE SOURCE CLEAN CATCH
--- NOTE | 2016-07-08 08:41 | Diag Imaging Result Document ---
PROCEDURE NAME: FLAT/UPRIGHT ABD/1 VIEW CHEST - 07/08/2016 ACUTE ABDOMINAL SERIES: COMPARISON: 07/07/2016. INDICATION: Chest pain and abdominal pain. FINDINGS: Supine and erect views of the abdomen reveal moderate constipation. There is no evidence for obstruction or organomegaly. The PA chest reveals old bilateral rib fractures. Within the left posterolateral ribs there are apparent new fractures which appear fairly acute with associated pleural thickening. No focal consolidation. No pneumothorax. There is a scoliosis. There are other bilateral healed rib fractures. No free air. IMPRESSION: 1. Left lateral rib fracture 6 through 8 which appear fairly acute. Mild associated pleural thickening. 2. Bilateral chronic rib fractures. 3. Constipation. 4. Scoliosis.
--- NOTE | 2016-07-08 08:58 | PROVIDER DOCUMENTATION ---
HPI-Abdominal Pain/GI Problem - General Chief Complaint: Chest Pain Stated Complaint: cp/sob Time Seen by Provider: 07/08/16 07:20 Source: patient, family Allergies/Adverse Reactions: Patient Allergies Allergy/AdvReac Type Severity Reaction Status Date / Time No Known Allergies Allergy Verified 07/07/16 03:38 Home Medications: Home Medication List Medication Instructions Recorded Confirmed Last Taken Type Prednisone 20 mg PO QPM 04/24/16 07/07/16 07/06/16 History Albuterol Sulfate Inhaler 2 puff INH [id number] 05/19/16 07/07/16 07/07/16 03:00 History [Ventolin Hfa] Citalopram [Celexa] 40 mg PO DAILY 05/19/16 07/07/16 07/06/16 History Ergocalciferol (Vitamin D2) 50,000 unit PO DIRECTED 05/19/16 07/07/16 History [Vitamin D2] Ipratropium/Albuterol Sulfate 3 ml IH Q4-6H PRN PRN 05/19/16 07/07/16 07/07/16 02:00 History [Iprat-Albut 0.5-3(2.5) mg/3 ml] Montelukast [Singulair] 10 mg PO DAILY 05/19/16 07/07/16 07/06/16 History Pantoprazole [Protonix] 40 mg PO DAILY 05/19/16 07/07/16 07/06/16 History Simvastatin 40 mg PO DAILY 05/19/16 07/07/16 07/06/16 History Theophylline Anhydrous 400 mg PO BID 05/19/16 07/07/16 07/06/16 History [Theophylline] Albuterol Sulfate [Proair Hfa] 2 puff INH BID 05/24/16 07/07/16 07/07/16 03:00 History Hydrocodone/APAP 10 mg/325 mg 1 each PO Q4-6H PRN PRN #15 tablet 05/24/1607/06/16 12:00 Rx [[place]-10] Alprazolam 1 mg PO TID 07/07/16 07/07/16 07/07/16 02:00 History Baclofen 10 mg PO TID 07/07/16 07/07/16 07/06/16 History LISINOpril [Prinivil] 2.5 mg PO DAILY 07/07/16 07/07/16 07/06/16 History Ondansetron [Zofran Odt] 4 mg PO Q6-8H PRN PRN #20 07/07/16 Unknown Rx tab.rapdis Temazepam [Restoril] 30 mg PO HS 07/07/16 07/07/16 07/06/16 History Acetaminophen/Diphenhydramine 1 each PO BID PRN #10 tablet 07/08/16 Unknown Rx [Percogesic 325-12.5 mg Tablet] - History of Present Illness-ABD Nature of Presenting Problems: Pt is brought in by EMS from [facility] due to abd pain/CP. Was seen at [place] yesterday for similar symptoms. Reports he has h/o AAA and COPD, denies CAD and no stents in his heart Abdominal Pain Onset Location: reports: epigastric Pain Radiation: reports: no radiation Quality of Pain: reports: aching, sharp Severity in ED: reports: moderate Onset/Duration: reports: last night Timing: reports: still present Activities at Onset: reports: none Exposure to sick contacts?: No Modifying Factors: improves with: nothing Associated Symptoms: reports: denies symptoms, anxiety, chest pain. denies: cough, diaphoresis, loss of appetite, nausea, syncope, vomiting, weakness Last BM: unsure Bruising or Bleeding Gums?: No Similar Symptoms Previously?: No Recently seen or treated by another doctor?: No Review of Systems - Adult - REVIEW OF SYSTEMS - ADULT Constitutional: reports: no symptoms reported Eyes: reports: no symptoms reported Ears, Nose, Mouth & Throat: reports: no symptoms reported Cardiovascular: reports: see HPI, chest pain Respiratory: reports: no symptoms reported, see HPI Gastrointestinal: reports: see HPI, abdominal pain Genitourinary: reports: no symptoms reported Musculoskeletal: reports: no symptoms reported Integumentary: reports: no symptoms reported Neurological: reports: no symptoms reported Psychiatric: reports: no symptoms reported Endocrine: reports: no symptoms reported Hematologic/Lymphatic: reports: no symptoms reported Allergic/Immunologic: reports: no symptoms reported All Other Systems: Reviewed and Negative Past History - Adult - PAST MEDICAL HISTORY-ADULT Review of Records: reports: Old Records Reviewed, Nursing Assessment Review, Medications Reviewed Cardiovascular: reports: aortic disease (AAA), HTN Respiratory: reports: asthma, COPD Genitourinary: reports: denies history Musculoskeletal: reports: denies history Neurological: reports: Seizures/Epilepsy Psychiatric: reports: anxiety, depression Endocrine/Immune: reports: Diabetes - PRIOR SURGERIES/PROCEDURES Surgical/Procedure History: reports: orthopedic (extremity) (hand and knee sx), back/neck, other (bilateral cataract sx/ lung sx) - IMMUNIZATION STATUS Childhood Immunizations: See Nurse Assessment Flu Vaccine: See Nurse Assessment Physical Exam-General - PHYSICAL EXAM-ADULT Initial Vital Signs Reviewed: Yes - CONSTITUTIONAL General Appearance: appears well, alert - EYES Eyes: PERRL/EOMI, pink conjunctivae - HEAD, EARS, NOSE, MOUTH & THROAT HENMT: normocephalic/atraumatic, moist mucous membranes - NECK Neck: non-tender, full range of motion - RESPIRATORY Respiratory: chest non-tender, lungs clear, normal breath sounds, no pleuratic chest pain - CARDIOVASCULAR Cardiovascular: normal peripheral pulses, regular rate, rhythm, no edema, no gallop, no JVD - GASTROINTESTINAL (ABDOMEN) Abdominal Exam: normal bowel sounds, soft, tenderness. negative: distended, guarding, rigid, rebound - MUSCULOSKELETAL Back Exam: normal inspection, no CVA tenderness Extremity: normal range of motion, non-tender, normal gait, normal inspection - SKIN Integumentary: normal color, normal turgor, warm/dry - NEUROLOGIC Neurologic: no motor/sensory deficits - PSYCHIATRIC Psych/Mental Status: normal mood/affect, normal thought content, normal thought process, oriented x 3 Progress - PLAN OF CARE/RESULTS Progress/Plan/Lab Results: Vital Signs - 8 hr 07/08/16 07:21 Pulse Rate 84 Respiratory Rate 19 Blood Pressure 147/098 O2 Sat by Pulse Oximetry 99 Laboratory Results - last 24 hr 07/08/16 07/08/16 07/08/16 07:10 07:10 07:30 WBC 13.26 H RBC 4.59 L Hgb 14.0 Hct 42.1 MCV 91.7 MCH 30.5 MCHC 33.3 RDW Std Deviation 15.2 H Plt Count 262 MPV 9.6 Immature Gran % (Auto) 6.7 H Neut % (Auto) 73.2 Lymph % (Auto) 13.1 L Maury % (Auto) 6.7 Eos % (Auto) 0.1 Baso % (Auto) 0.2 Immature Gran # (Auto) 0.89 H Neut # (Auto) 9.70 H Lymph # (Auto) 1.74 Maury # (Auto) 0.89 H Eos # (Auto) 0.01 Baso # (Auto) 0.03 Sodium 139 Potassium 3.8 Chloride 99 Carbon Dioxide 26 Anion Gap 14 BUN 26 H Creatinine 0.7 Estimated GFR/1.73 m2 > 60 BUN/Creatinine Ratio 37 Glucose 127 H Calculated Osmolality 284 Calcium 9.2 Total Bilirubin 0.40 AST 17 ALT 26 Alkaline Phosphatase 55 Total Protein 6.9 Albumin 4.7 Globulin 2.0 Albumin/Globulin Ratio 2.0 Amylase 50 Lipase 48 Urine Source Urine Color Urine Clarity Urine pH Ur Specific [place] Urine Protein Urine Ketones Urine Blood Urine Nitrite Urine Bilirubin Urine Urobilinogen Urine Microscopic RBC Urine WBC Urine Microscopic WBC Ur Epithelial Cells Urine Bacteria Urine Glucose Urine Opiates Screen NONE DETECTED Ur Oxycodone Screen NONE DETECTED Urine Methadone Screen NONE DETECTED Ur Barbituates Screen NONE DETECTED Ur Tricyclics Screen NONE DETECTED Ur Phencyclidine Scrn NONE DETECTED Ur Amphetamines Screen NONE DETECTED U Methamphetamines Scrn NONE DETECTED Urine MDMA Screen NONE DETECTED U Benzodiazepines Scrn NONE DETECTED Urine Cocaine Screen NONE DETECTED U Cannabinoids Screen NONE DETECTED 07/08/16 07:30 WBC RBC Hgb Hct MCV MCH MCHC RDW Std Deviation Plt Count MPV Immature Gran % (Auto) Neut % (Auto) Lymph % (Auto) Maury % (Auto) Eos % (Auto) Baso % (Auto) Immature Gran # (Auto) Neut # (Auto) Lymph # (Auto) Maury # (Auto) Eos # (Auto) Baso # (Auto) Sodium Potassium Chloride Carbon Dioxide Anion Gap BUN Creatinine Estimated GFR/1.73 m2 BUN/Creatinine Ratio Glucose Calculated Osmolality Calcium Total Bilirubin AST ALT Alkaline Phosphatase Total Protein Albumin Globulin Albumin/Globulin Ratio Amylase Lipase Urine Source CLEAN CATCH Urine Color YELLOW Urine Clarity CLEAR Urine pH 6.0 Ur Specific [place] 1.025 Urine Protein TRACE A Urine Ketones NEGATIVE Urine Blood 1+ A Urine Nitrite NEGATIVE Urine Bilirubin NEGATIVE Urine Urobilinogen NORMAL Urine Microscopic RBC <10 Urine WBC NEGATIVE Urine Microscopic WBC <10 Ur Epithelial Cells <10 Urine Bacteria 1+ Urine Glucose TRACE(50 mg/dL) A Urine Opiates Screen Ur Oxycodone Screen Urine Methadone Screen Ur Barbituates Screen Ur Tricyclics Screen Ur Phencyclidine Scrn Ur Amphetamines Screen U Methamphetamines Scrn Urine MDMA Screen U Benzodiazepines Scrn Urine Cocaine Screen U Cannabinoids Screen Orders Category Date Time Status Cardiac Monitoring DIRECTED Care 07/08/16 07:26 Inactive Oxygen Therapy- ED Nursing DIRECTED Care 07/08/16 07:26 Inactive Saline Loc DIRECTED Care 07/08/16 07:25 Active Saline Loc NOW Care 07/08/16 07:26 Inactive NPO Diet 07/08/16 07:25 Active ABD/PELVIS/PULM ARTERIES [CT] Stat Exams 07/08/16 08:37 Ordered FLAT/UPRIGHT ABD/1 VIEW CHEST [RAD] Stat Exams 07/08/16 07:24 Draft AMYLASE [CHEM] Stat Lab 07/08/16 07:10 Completed CBC WITH ELECTRONIC DIFF [HEME] Stat Lab 07/08/16 07:10 Completed COMPREHENSIVE METABOLIC PANEL [CHEM] Stat Lab 07/08/16 07:10 Completed LIPASE [CHEM] Stat Lab 07/08/16 07:10 Completed TROPONIN T Stat Lab 07/08/16 08:[address] W/POSS RFLX CULT [URINALYSIS] Stat Lab 07/08/16 07:30 Com[address] DRUG SCREEN [address] Stat Lab 07/08/16 07:30 Completed 0.9% Sodium Chloride Inj [Ns] 1,000 ml Med 07/08/16 07:38 Discontinued IV 999 mls/hr Ondansetron [Zofran] Med 07/08/16 07:38 Discontinued 4 mg IV NOW ONE EKG [EKG] Stat Ther 07/08/16 07:26 Draft Result Diagrams: 07/08/16 07:10 07/08/16 07:10 Departure - Departure Time of Disposition Decision: 10:26 DIAGNOSIS: Atypical chest pain Abdominal pain Qualifiers: Abdominal location: epigastric Qualified Code(s): R10.13 - Epigastric pain Disposition: HOME 01 Certified Medical Emergency: Emergent Condition: Stable Additional Freetext Instructions: Follow up with regular MD in 2-3 days. Return to ER as needed. Prescriptions: Acetaminophen/Diphenhydramine [Percogesic 325-12.5 mg Tablet] 1 each PO BID PRN #10 tablet PRN Reason: Pain Referrals and Follow-Ups: Phillip Trivedi MD [Primary Care Provider] - - Critical Care Note This patient required my direct & personal management of CC.: No
--- NOTE | 2016-07-08 09:56 | Diag Imaging Result Document ---
PROCEDURE NAME: ABD/PELVIS/PULM ARTERIES - 07/08/2016 CT SCAN OF THE ABDOMEN, PELVIS, AND PULMONARY ARTERIES WITH IV CONTRAST: COMPARISON: 04/25/2016. INDICATION: Chest and abdomen pain. Known abdominal aortic aneurysm. CT PULMONARY ARTERIES: FINDINGS: There is pulmonary emphysema. There is appropriate opacification of pulmonary arteries. No central filling defects are identified. There is poor opacification of the distal pulmonary arteries and it is difficult to exclude small peripheral emboli. No effusions. No pneumothorax. 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 There is no mediastinal or hilar lymphadenopathy. No thoracic aneurysm or dissection. IMPRESSION: Pulmonary emphysema. No central emboli, although it is difficult to exclude peripheral emboli in the distal branches. CT ABDOMEN AND PELVIS: FINDINGS: Images of the abdominal reveal no calcified gallstones. The liver, spleen, pancreas, and adrenal glands appear normal. 5.6 cm left renal cyst as well as small left upper pole renal cysts are unchanged. There is an infrarenal abdominal aortic aneurysm with small amount of thrombus anteriorly, maximal dimension of 3.8 cm. There is no evidence for acute hemorrhage. There is no free fluid or free air. There are no inflammatory changes. There is diverticulosis. There is no evidence for diverticulitis. There is no evidence for bowel obstruction. The appendix appears normal. There is deformity of the right superior iliac wing. There is mild constipation. IMPRESSION: Stable abdominal aortic aneurysm and renal cysts. Mild constipation. No acute abnormalities are appreciated. [facility]
[2016-07-08] MEDS ORDERED: TORADOL IV ONE (11:19)
[2016-07-08] MEDS ORDERED: NITROGLYCERIN SL PRN (13:41)
[2016-07-08] MEDS ORDERED: SALINE LOCK IV FLUID XX ONE (13:41)
[2016-07-08] MEDS: XANAX PO PRN ×2 (14:18→20:26)
[2016-07-08] MEDS: NORCO-10 PO PRN ×3 (14:18→23:57)
[2016-07-08 14:23] LABS: AGAP 12; BUN 21 mg/dL (8-22); CALCIUM 8.6 mg/dL (8.8-10.2); CHLORIDE 100 mmol/L (98-107); COSMO 280; POTASSIUM 4.1 mmol/L (3.5-5.1); SODIUM 138 mmol/L (136-145); TCO2 26 mmol/L (25-35)
[2016-07-08] MEDS: VENTOLIN HFA INH SCH ×2 (16:06→21:35)
[2016-07-08] MEDS: LIORESAL PO SCH (17:07)
[2016-07-08] MEDS: ADVAIR 250/50 DISKUS INH SCH (19:00)
[2016-07-08] MEDS: ZOCOR PO SCH (20:25)
[2016-07-08] MEDS: [UNRECOGNIZED DRUG - OTHER] PO SCH (20:28)
[2016-07-08] MEDS: ZOFRAN IV PRN (20:31)
[2016-07-08] MEDS ORDERED: RESTORIL PO SCH (21:00)
[2016-07-08] MEDS: RESTORIL PO SCH (23:54)
[2016-07-09] MEDS: VENTOLIN HFA INH SCH ×3 (03:20→15:00)
[2016-07-09] MEDS: NORCO-10 PO PRN ×4 (04:06→20:37)
[2016-07-09] MEDS: PRILOSEC PO SCH (06:13)
[2016-07-09 07:03] LABS: HEMATOCRIT 37.2 % (42.0-52.0); MCH 30.2 PG (27-31); MCHC 32.3 g/dL (33-37); MCV 93.7 FL (81-99); MPV 9.8 FL (7.4-10.4); RBC 3.97 XMIL (4.7-6.1)
[2016-07-09 07:19] LABS: HDL 75 mg/dL (35-55); LDL 36 mg/dL; TRIGLYCERIDES 238 mg/dL (39-160); VLDL 48 mg/dL
[2016-07-09] MEDS: ADVAIR 250/50 DISKUS INH SCH ×2 (08:01→20:21)
[2016-07-09] MEDS: LIORESAL PO SCH ×3 (08:25→16:44)
[2016-07-09] MEDS: ASPIRIN PO SCH (08:25)
[2016-07-09] MEDS: CELEXA PO SCH (08:25)
[2016-07-09] MEDS: PRINIVIL PO SCH (08:25)
[2016-07-09] MEDS: XANAX PO PRN ×3 (08:26→23:48)
[2016-07-09] MEDS: SINGULAIR PO SCH (08:26)
[2016-07-09] MEDS ORDERED: PROTONIX PO SCH (09:00)
--- NOTE | 2016-07-09 09:08 | HISTORY AND PHYSICAL ---
CHIEF COMPLAINT: Chest pain. HISTORY OF PRESENT ILLNESS: The patient is a 65-year-old male who has a known history of diabetes and chronic tobacco abuse. He presented to the emergency department complaining of chest pain for the past 18 hours or so. Notes the pain has continued to become more severe. Continued to hurt in his mid chest with radiation to his left arm. He was actually seen at [facility] yesterday and then back to [place] today. Denies any previous stenting. Does not remember the last time he had any heart workup. ALLERGIES: No known drug allergies. MEDICATIONS: Prednisone due to a recent COPD exacerbation, albuterol, Celexa 40, vitamin D, albuterol nebulizers q.4 hours p.r.n., Singulair 10, Protonix 40, simvastatin 40, theophylline, [place] q.4 hours p.r.n., Xanax 1 mg 3 times a day p.r.n., Restoril, lisinopril 2.5, and baclofen 10 t.i.d. PAST MEDICAL HISTORY: He has a known AAA, history of COPD, anxiety, chronic pain, chronic depression, diabetes, seizures. PAST SURGICAL HISTORY: He has a history of orthopedic surgery to his hands and knee. She has had back surgery and bilateral cataract surgery. REVIEW OF SYSTEMS: As noted above. Denies any nausea or vomiting. Denies any current chest pain, but notes his chest pain has lasted for a day or 2 when he went to [facility] and then back to [place]. States that it was in his mid chest, radiated to his left arm. He did have some nausea with it but denies any diaphoresis. Denies any dyspnea on exertion. Denies any current chest pain. Denies headaches, blurry vision, change in vision. Denies any dysuria, frequency, urgency. Denies any constipation, melena, or hematochezia. PHYSICAL EXAMINATION: VITAL SIGNS: Reviewed. Temperature 98 degrees, pulse 84, respiratory rate 19, BP 147/98, saturating 99% on room air. GENERAL: Patient is awake, alert. He is currently in no real respiratory distress. He is pleasant to talk with. Speech is regular. Memory is intact. NECK: Supple. CV: Regular rate. CHEST: Relatively clear. No crackles. Decreased breath sounds but equal bilaterally and patient's baseline. ABDOMEN: Soft. EXTREMITIES: Moves all extremities. NEUROLOGIC: No focal changes. SKIN: Warm and dry. No rashes. LABS: First set of cardiac enzymes are negative. WBCs 13. ASSESSMENT: 1. Leukocytosis, likely steroid effect. 2. Chronic obstructive pulmonary disease with recent exacerbation, currently improved. 3. Hypertension. 4. Chronic tobacco abuse. 5. Diabetes. PLAN: We will admit the patient to the hospital. Continue to follow. He is currently diet controlled on his diabetes. Will rule out for an [place]. Further orders as needed. We will place on sliding scale insulin. cc: Phillip Trivedi MD
[2016-07-09] MEDS: [UNRECOGNIZED DRUG - OTHER] PO SCH ×2 (09:57→20:39)
[2016-07-09] MEDS: ALBUTEROL NEB INH PRN (20:20)
[2016-07-09] MEDS: ZOFRAN IV PRN (20:37)
[2016-07-09] MEDS: ZOCOR PO SCH (20:38)
[2016-07-09] MEDS: RESTORIL PO SCH (20:38)
[2016-07-09] MEDS: TYLENOL PO PRN (23:47)
[2016-07-10] MEDS: ALBUTEROL NEB INH PRN ×3 (01:30→08:23)
[2016-07-10] MEDS: NORCO-10 PO PRN ×4 (04:54→21:30)
[2016-07-10] MEDS: ZOFRAN IV PRN ×2 (04:54→21:30)
[2016-07-10] MEDS: ASPIRIN PO SCH ×2 (04:59→09:42)
[2016-07-10] MEDS: PRILOSEC PO SCH (06:05)
--- NOTE | 2016-07-10 08:09 | PROGRESS NOTE ---
DATE: 07/10/2016 SUBJECTIVE: Patient notes that his chest pain is all but resolved. He is feeling better. OBJECTIVE: Vital Signs: Reviewed and stable. He is afebrile. Blood pressure is stable. Heart rate 80, respiratory rate 20. General: Patient is awake, alert. He is currently in no respiratory distress. Speech is regular. Memory is intact. Neck: Supple. CV: Regular rate. Chest: Clear and nonlabored. Abdomen: Soft, nontender. No masses. Extremities: Moves all extremities. Neurologic: No changes. ASSESSMENT: 1. Chest pain, resolved. 2. Gastritis, stress induced. 3. Acute stress reaction. PLAN: We will get social services aide involved to assist in discharge planning as Mr. Siegel is currently homeless. He does not appear to be having acute coronary syndrome. cc: Phillip Trivedi MD
[2016-07-10] MEDS ORDERED: DUONEB (A & A) INH PRN (08:17)
[2016-07-10] MEDS ORDERED: ZOFRAN IV PRN (08:17)
[2016-07-10] MEDS: ADVAIR 250/50 DISKUS INH SCH ×2 (08:23→20:43)
[2016-07-10] MEDS ORDERED: VENTOLIN HFA INH PRN (08:56)
[2016-07-10] MEDS ORDERED: VITAMIN D PO SCH (09:00)
[2016-07-10] MEDS: ROCEPHIN 1 GM/NS 1 GM/50 ML IVPB IV SCH (09:40)
[2016-07-10] MEDS: LIORESAL PO SCH ×3 (09:40→16:43)
[2016-07-10] MEDS: XANAX PO PRN ×2 (09:40→21:30)
[2016-07-10] MEDS: SOLU-MEDROL IV SCH ×2 (09:40→16:43)
[2016-07-10] MEDS: PRINIVIL PO SCH (09:41)
[2016-07-10] MEDS: SINGULAIR PO SCH (09:41)
[2016-07-10] MEDS: [UNRECOGNIZED DRUG - OTHER] PO SCH ×2 (09:41→21:30)
[2016-07-10] MEDS: CELEXA PO SCH (09:42)
[2016-07-10] MEDS: DUONEB (A & A) INH SCH ×4 (11:07→23:05)
[2016-07-10] MEDS: RESTORIL PO SCH (21:29)
[2016-07-10] MEDS: ZOCOR PO SCH (21:30)
[2016-07-10] MEDS: HUMALOG (PARKWAY) SUBQ SCH (22:40)
[2016-07-10] MEDS: TYLENOL PO PRN (22:44)
[2016-07-11] MEDS: SOLU-MEDROL IV SCH ×3 (01:32→16:14)
[2016-07-11] MEDS: NORCO-10 PO PRN ×5 (01:36→20:42)
[2016-07-11] MEDS: DUONEB (A & A) INH SCH ×5 (03:35→20:30)
[2016-07-11 05:55] LABS: HEMOGLOBIN 12.5 g/dL (14.0-18.0); MCH 30.6 PG (27-31); MCHC 32.9 g/dL (33-37); MCV 93.1 FL (81-99); MPV 9.9 FL (7.4-10.4); RBC 4.08 XMIL (4.7-6.1)
[2016-07-11 06:11] LABS: AGAP 12; ALBUMIN 4.1 g/dL (3.5-5.0); ALKALINE PHOSPHATASE 48 U/L (32-122); BUN 27 mg/dL (8-22); CALCIUM 9.8 mg/dL (8.8-10.2); CHLORIDE 95 mmol/L (98-107); COSMO 277; GOT 11 U/L (10-34); GPT 19 U/L (10-44); SODIUM 133 mmol/L (136-145); TCO2 26 mmol/L (25-35); TOTAL PROTEIN 6.2 g/dL (6.3-8.3)
[2016-07-11] MEDS: HUMALOG (PARKWAY) SUBQ SCH ×4 (06:25→20:41)
[2016-07-11] MEDS: PRILOSEC PO SCH (06:25)
[2016-07-11] MEDS: ADVAIR 250/50 DISKUS INH SCH ×2 (08:04→20:30)
[2016-07-11] MEDS: ROCEPHIN 1 GM/NS 1 GM/50 ML IVPB IV SCH (09:29)
[2016-07-11] MEDS: ASPIRIN PO SCH (09:30)
[2016-07-11] MEDS: SINGULAIR PO SCH (09:30)
[2016-07-11] MEDS: PRINIVIL PO SCH (09:30)
[2016-07-11] MEDS: LIORESAL PO SCH ×3 (09:30→16:14)
[2016-07-11] MEDS: CELEXA PO SCH (09:30)
[2016-07-11] MEDS: [UNRECOGNIZED DRUG - OTHER] PO SCH ×2 (09:30→20:43)
[2016-07-11] MEDS: ZOFRAN IV PRN (11:32)
[2016-07-11] MEDS: XANAX PO PRN ×2 (13:10→20:42)
--- NOTE | 2016-07-11 16:38 | PROGRESS NOTE ---
DATE: 07/11/2016 SUBJECTIVE: The patient notes he is breathing a little bit easier. He is still having some cough and shortness of breath. He is still having dyspnea on exertion with minimal ambulation. OBJECTIVE: Vital Signs: Reviewed. General: He is awake, alert. He is in respiratory distress. He is pleasant to talk with. Speech is regular. Neck: Supple. Cardiovascular: Regular rate. Chest: Decreased breath sounds, but equal bilaterally. Positive wheezing bilaterally, but improved from yesterday's exam. No crackles. Extremities: Moves all extremities. Neurologic: No focal changes. DIAGNOSTIC DATA: CBC and CMP essentially normal with a glucose of 204. ASSESSMENT: 1. Diabetes with hyperglycemia secondary to Solu-Medrol. 2. Chronic obstructive pulmonary disease with exacerbation. Continue Solu-Medrol. We will attempt to wean. We will continue breathing treatments and oxygen. 3. Poor social situation. PLAN: We will continue the patient in the hospital, continue to attempt to wean breathing treatments, oxygen, and steroids, continue sliding scale insulin. Further orders as needed. cc: Phillip Trivedi MD
[2016-07-11] MEDS: ZOCOR PO SCH (20:42)
[2016-07-11] MEDS: RESTORIL PO SCH (20:43)
[2016-07-12] MEDS: DUONEB (A & A) INH SCH ×7 (00:20→23:24)
[2016-07-12] MEDS: NORCO-10 PO PRN ×6 (00:34→22:58)
[2016-07-12] MEDS: TYLENOL PO PRN (00:36)
[2016-07-12] MEDS: SOLU-MEDROL IV SCH ×3 (00:37→21:46)
[2016-07-12] MEDS: ADVAIR 250/50 DISKUS INH SCH ×2 (08:05→19:54)
[2016-07-12] MEDS: CELEXA PO SCH (08:52)
[2016-07-12] MEDS: ROCEPHIN 1 GM/NS 1 GM/50 ML IVPB IV SCH (08:53)
[2016-07-12] MEDS: ASPIRIN PO SCH (08:53)
[2016-07-12] MEDS: PRINIVIL PO SCH (08:53)
[2016-07-12] MEDS: SINGULAIR PO SCH (08:53)
[2016-07-12] MEDS: [UNRECOGNIZED DRUG - OTHER] PO SCH ×2 (08:53→21:46)
[2016-07-12] MEDS: LIORESAL PO SCH ×3 (08:53→17:47)
[2016-07-12] MEDS: HUMALOG (PARKWAY) SUBQ SCH ×4 (08:58→20:46)
[2016-07-12] MEDS: ZOFRAN IV PRN ×2 (09:11→21:51)
[2016-07-12] MEDS: XANAX PO PRN ×2 (09:11→21:51)
[2016-07-12] MEDS: PRILOSEC PO SCH (11:49)
--- NOTE | 2016-07-12 12:13 | PROGRESS NOTE ---
DATE: 07/09/2016 SUBJECTIVE: The patient notes that he is still having some cough, congestion. Notes that his breathing has worsened. Notes he is having increased wheezing and shortness of breath. Significant dyspnea on exertion. PHYSICAL: Temperature 97 degrees, pulse 68, respiratory 20, BP 130/75.General: Patient is awake, alert. He is currently in mild respiratory distress. He is pleasant and his speech is regular. He is pleasant to talk with. HEENT: Normocephalic, atraumatic. Neck: Supple. CV: Regular rate and rhythm. Chest: Relatively clear. Abdomen: Soft. Extremities: Moves all extremities. Neurologic: No focal changes. Skin: Warm and dry. No rashes. ASSESSMENT: 1. Chronic obstructive pulmonary disease with mild exacerbation. We will place patient on steroids. 2. Acute situational depression with acute stress reaction. 3. Chronic COPD. 4. Chronic hypoxemia. PLAN: We will increase patient's breathing treatments, slightly increase his oxygen. We will place him on antibiotics. Will increase steroids and continue to follow. We will have licensed social worker assist with discharge planning as well. cc: Phillip Trivedi MD
--- NOTE | 2016-07-12 12:17 | PROGRESS NOTE ---
DATE: 07/12/2016 SUBJECTIVE: Patient notes he is feeling much better today. He is having much less cough, congestion, much less wheezing, much less shortness of breath. Denies any current chest pains or palpitations. Notes that his dyspnea on exertion is also improving although he is not quite back to his baseline. PHYSICAL: Temp 98 degrees, pulse 91, respiratory 20, BP 155/67.General: Patient is awake, alert, oriented male, who is currently in no real respiratory distress. He is pleasant to talk with. Speech is regular. Memory is intact. Neck: Supple. CV: Regular rate. Chest: With minimal wheezing, much better air movement than yesterday's exam. No crackles. Abdomen: Soft. Extremities: Moves all extremities. Neurologic: No focal changes. Skin: Warm and dry. No rashes. ASSESSMENT: Chronic obstructive pulmonary disease with exacerbation. Continues to improve. As his symptoms worsened after decreasing Solu-Medrol we will decrease it very slowly to 40 q.12 today. Hopefully he will tolerate this and can be discharged home in the a.m. We will continue oxygen. Continue breathing treatments. Discharge planning is still difficult at best as patient refused social work nurse help to get into a half-way. However he currently has no residence to go to. Again this will cause us to go much slower. Hopefully he and his son can work through their issues and he can be discharged to his son's house tomorrow. cc: Phillip Trivedi MD
[2016-07-12] MEDS: RESTORIL PO SCH (21:45)
[2016-07-12] MEDS: ZOCOR PO SCH (21:46)
[2016-07-13] MEDS: NORCO-10 PO PRN ×4 (03:02→18:00)
[2016-07-13] MEDS: DUONEB (A & A) INH SCH ×6 (04:24→23:42)
[2016-07-13] MEDS: HUMALOG (PARKWAY) SUBQ SCH ×4 (06:28→20:27)
[2016-07-13] MEDS: PRILOSEC PO SCH (06:28)
[2016-07-13] MEDS: TYLENOL PO PRN (06:32)
[2016-07-13] MEDS: ZOFRAN IV PRN ×2 (06:32→18:01)
[2016-07-13] MEDS: XANAX PO PRN ×3 (06:32→20:38)
[2016-07-13] MEDS: PRINIVIL PO SCH (08:18)
[2016-07-13] MEDS: SINGULAIR PO SCH (08:18)
[2016-07-13] MEDS: ASPIRIN PO SCH (08:19)
[2016-07-13] MEDS: SOLU-MEDROL IV SCH ×2 (08:19→20:27)
[2016-07-13] MEDS: CELEXA PO SCH (08:19)
[2016-07-13] MEDS: [UNRECOGNIZED DRUG - OTHER] PO SCH ×2 (08:19→20:26)
[2016-07-13] MEDS: ROCEPHIN 1 GM/NS 1 GM/50 ML IVPB IV SCH (08:19)
[2016-07-13] MEDS: LIORESAL PO SCH ×3 (08:19→18:00)
[2016-07-13] MEDS: ADVAIR 250/50 DISKUS INH SCH ×2 (11:52→20:18)
[2016-07-13] MEDS: RESTORIL PO SCH (20:26)
[2016-07-13] MEDS: ZOCOR PO SCH (20:26)
--- NOTE | 2016-07-13 22:46 | DISCHARGE SUMMARY ---
ADMISSION DATE: 07/08/2016 DISCHARGE DATE: DISCHARGE DIAGNOSIS: 1. Chronic obstructive pulmonary disease with mild exacerbation. 2. Chest pain resolved. 3. Leukocytosis resolved. 4. Poor social situation. This patient has been kicked out of his son's house and is currently homeless. CONSULTATIONS: None. PROCEDURE: None. HOSPITAL COURSE: Patient is a 65-year-old male who was admitted as noted on HPI for chest pain. He subsequently diagnosed with COPD exacerbation, was treated in usual fashion, given antibiotics, breathing treatments, oxygen, steroids. He continued to improve. On discharge he is awake, alert. He is in no distress. He is feeling better. DISPOSITION: The patient will be discharged home if he can find a place to go. Unfortunately he declined professor of social work help last week to get him to the [facility]. We will get everything ready to discharge. Hopefully his family will assist him in discharge. Discussed with patient the perils of smoking. Discussed with him the perils of opiates and benzodiazepines with his known COPD. TIME SPENT: 35 minutes was spent in discharge planning and instructions. cc: Phillip Trivedi MD
[2016-07-14] MEDS: NORCO-10 PO PRN ×5 (02:09→21:15)
[2016-07-14] MEDS: XANAX PO PRN ×3 (02:12→21:15)
[2016-07-14] MEDS: DUONEB (A & A) INH SCH ×6 (04:58→23:47)
[2016-07-14] MEDS: HUMALOG (PARKWAY) SUBQ SCH (06:18)
[2016-07-14] MEDS: PRILOSEC PO SCH (06:32)
[2016-07-14] MEDS: ADVAIR 250/50 DISKUS INH SCH ×2 (07:53→20:15)
[2016-07-14] MEDS: ROCEPHIN 1 GM/NS 1 GM/50 ML IVPB IV SCH (08:32)
[2016-07-14] MEDS: PRINIVIL PO SCH (09:33)
[2016-07-14] MEDS: CELEXA PO SCH (09:33)
[2016-07-14] MEDS: LIORESAL PO SCH ×3 (09:33→18:44)
[2016-07-14] MEDS: ASPIRIN PO SCH (09:33)
[2016-07-14] MEDS: [UNRECOGNIZED DRUG - OTHER] PO SCH ×2 (09:34→21:16)
[2016-07-14] MEDS: SINGULAIR PO SCH (09:34)
[2016-07-14] MEDS: SOLU-MEDROL IV SCH ×2 (09:34→21:14)
[2016-07-14] MEDS: HUMALOG DOSE (PARKWAY) SUBQ SCH (12:04)
[2016-07-14] MEDS: ZOCOR PO SCH (21:15)
[2016-07-14] MEDS: RESTORIL PO SCH (21:15)
[2016-07-15] MEDS: DUONEB (A & A) INH SCH ×4 (03:37→15:18)
[2016-07-15] MEDS: NORCO-10 PO PRN ×3 (04:00→14:07)
[2016-07-15] MEDS: HUMALOG DOSE (PARKWAY) SUBQ SCH ×5 (04:54→17:03)
[2016-07-15] MEDS ORDERED: PRINIVIL PO SCH (06:46)
[2016-07-15] MEDS: PRILOSEC PO SCH (06:59)
[2016-07-15] MEDS: ADVAIR 250/50 DISKUS INH SCH (07:55)
[2016-07-15] MEDS: ASPIRIN PO SCH (08:09)
[2016-07-15] MEDS: SINGULAIR PO SCH (08:09)
[2016-07-15] MEDS: MEDROL PO SCH ×3 (08:09→17:02)
[2016-07-15] MEDS: LIORESAL PO SCH ×3 (08:09→17:02)
[2016-07-15] MEDS: [UNRECOGNIZED DRUG - OTHER] PO SCH (08:09)
[2016-07-15] MEDS: ROCEPHIN 1 GM/NS 1 GM/50 ML IVPB IV SCH (08:09)
[2016-07-15] MEDS: CELEXA PO SCH (08:09)
[2016-07-15] MEDS: XANAX PO PRN (08:14)
--- NOTE | 2016-07-15 08:43 | PROGRESS NOTE ---
DATE: 07/15/2016 SUBJECTIVE: Patient is denies any current complaints. Denies any chest pain, palpitations. Notes that his breathing is much better. OBJECTIVE: Vital Signs: Reviewed. Temperature 98, pulse 66, respiratory rate 20, BP 155/90. General: Patient is awake, alert, oriented. He is currently in no respiratory distress. He is ambulating in the room without any difficulty. Neck: Supple. CV: Regular rate. Chest: Clear. Nonlabored. No wheezing. Abdomen: Soft. Extremities: Moves all extremities. Neurologic: No changes. ASSESSMENT: 1. Chronic obstructive pulmonary disease with mild exacerbation. 2. Chest pain resolved. 3. Hypertension. Will increase his blood pressure medications. 4. Diabetes with hyperglycemia improved, secondary to steroids. 5. Poor social situation. Patient currently is homeless. 6. High cholesterol. 7. Others. PLAN: We will continue patient as noted. We will continue to follow his blood sugars. We will decrease his Solu-Medrol. Hopefully home when arrangements can be arranged for him to no longer be homeless. cc: Phillip Trivedi MD
--- NOTE | 2016-07-15 08:48 | PROGRESS NOTE ---
DATE: 07/15/2016 SUBJECTIVE: Patient without any complaints. OBJECTIVE: Vital Signs: Reviewed. Temperature 98, pulse 89, respiratory rate 18, BP 135/74, saturation 98% on room air. General: Patient is awake, alert. He is currently in no respiratory distress. He is pleasant to talk with. Neck: Supple. CV: Regular rate. Chest: Clear. Abdomen: Soft. Extremities: Moves all extremities. Neurologic: No changes. ASSESSMENT: 1. Hypoxemia resolved. The patient currently is on room air. 2. Leukocytosis resolved. 3. Poor social situation. Patient currently is homeless and health and social care teacher is working on discharge planning. 4. Chronic obstructive pulmonary disease with exacerbation. His lungs are improved. We will continue to wean his steroids. We will change to p.o. today. 5. Home when arrangements are available. cc: Phillip Trivedi MD
[2016-07-15 16:11] VITALS: BP 138/88
--- NOTE | 2016-07-16 11:52 | DISCHARGE SUMMARY ---
ADMISSION DATE: 07/08/2016 DISCHARGE DATE: 07/15/2016 DISCHARGE DIAGNOSES: 1. Chronic obstructive pulmonary disease with mild exacerbation. 2. Chest pain, resolved. 3. Leukocytosis, resolved. 4. Poor social situation. Unfortunately, Mr. Siegel was recalcitrant to any assistance by transition social worker, as he stated he did not want go . He refused rehab. He also apparently got into an argument with his daughter and therefore she refused help. CONSULTATIONS: None. PROCEDURES: None BRIEF HOSPITAL COURSE: The patient is a 65-year-old male who was admitted as noted on the history of present illness. Treated initially for chest pain and subsequently for chronic obstructive pulmonary disease exacerbation. Placed on Solu-Medrol, breathing treatments, oxygen, which he continued to improve over the next several days. He was much more stable. Unfortunately, refused rehab and he refused other further assistance. His poor social situation certainly prolonged his hospital stay. DISPOSITION: The patient will be discharged home. Again, as noted, he refused all assistance by transition social worker and therefore he will be discharged under his own care. Patient is awake, alert. He is currently in no distress. He is on oral medications and inhalers. He does not require nebulizers at this point. TIME SPENT: Thirty-five minutes was spent in discharge planning and instructions. cc: Phillip Trivedi MD
== END 2016-07-15 19:28 | disposition home or self-care (01) ==
LOC: P.ED 07:18 → P.MEDSURG 07:18 → SUATTDRO 11:35 → OBSVTOIN 11:35 → INTOOBSV 11:35 → P.MEDSURG 07-11 00:57
PROVIDERS: ADMIT Family Medicine; ATTEND Family Medicine